=== PATIENT | female | born 1990 | race American Indian/Alaskan Native ===

== ENCOUNTER 2020-07-14 11:36 | Emergency (ER) | payer OTHER ==
[2020-07-14 11:56] VITALS: BP 121/78
[2020-07-14] MEDS ORDERED: HYDROcodone/ACETAMINOPHEN 5-325 MG TAB PO ONE (11:59)
[2020-07-14] MEDS ORDERED: LIDOCAINE-MPF (1%) 10 MG/1 ML VIAL 5 ML INFILTRATI ONE (11:59)
--- NOTE | 2020-07-14 12:04 | Emergency Department Report ---
- General Chief complaint: Skin/Abscess/Foreign Body Stated complaint: THIGH ABCESS Time Seen by Provider: 07/14/20 11:55 Source: patient Mode of arrival: Ambulatory Limitations: No Limitations - History of Present Illness Initial comments: pt is a 29 yo female who present to the ED with c/o right thigh abscess that began a few days ago. she states she has had this before in the past and they spontaneously resolve. she has not had to have an I&D in the past. she states that it has been increasing in size and becoming more painful. she denies any fever, n/v/d, drainage. she denies being bit by anything or any abrasion or laceration. no pmhx. no allergies to meds. - Related Data Previous Rx's Medication Instructions Recorded Last Taken Type Naproxen [EC-Naprosyn] 500 mg PO BID PRN #14 tablet. 07/14/20 Unknown Rx cephALEXin [Keflex] 500 mg PO QID 7 Days #28 cap 07/14/20 Unknown Rx Allergies Allergy/AdvReac Type Severity Reaction Status Date / Time No Known Allergies Allergy Verified 07/14/20 11:52 Abscess Boil HPI - HPI Chief Complaint: Skin/Abscess/Foreign Body Stated Complaint: THIGH ABCESS Time Seen by Provider: 07/14/20 11:55 Home Medications: Previous Rx's Medication Instructions Recorded Last Taken Type Naproxen [EC-Naprosyn] 500 mg PO BID PRN #14 tablet. 07/14/20 Unknown Rx cephALEXin [Keflex] 500 mg PO QID 7 Days #28 cap 07/14/20 Unknown Rx Allergies/Adverse Reactions: Allergies Allergy/AdvReac Type Severity Reaction Status Date / Time No Known Allergies Allergy Verified 07/14/20 11:52 ED Review of Systems ROS: Stated complaint: THIGH ABCESS Other details as noted in HPI Comment: All other systems reviewed and negative ED Past Medical Hx - Past Medical History Hx Psychiatric Treatment: Yes (SHIZO EFFECTIVE DISORDER/ DEPRESSION/ BIPOLAR) Hx Asthma: Yes - Surgical History Additional Surgical History: ORAL - Social History Smoking Status: Current Every Day Smoker Substance Use Type: None - Medications Home Medications: Home Medications Medication Instructions Recorded Confirmed Last Taken Type Naproxen [EC-Naprosyn] 500 mg PO BID PRN #14 tablet. 07/14/20 Unknown Rx cephALEXin [Keflex] 500 mg PO QID 7 Days #28 cap 07/14/20 Unknown Rx ED Physical Exam - General Limitations: No Limitations General appearance: alert, in no apparent distress - Head Head exam: Present: atraumatic, normocephalic - Eye Eye exam: Present: normal appearance - ENT ENT exam: Present: mucous membranes moist - Respiratory Respiratory exam: Absent: respiratory distress, accessory muscle use - Neurological Exam Neurological exam: Present: alert, oriented X3 - Psychiatric Psychiatric exam: Present: normal affect, normal mood - Skin Skin exam: Present: warm, dry, other (3 cm area of induration and central fluctuance to the right inner thigh, no drainage, no opening, no necrosis, no significant surrounding erythema ) ED Course Vital Signs 07/14/20 11:53 Temperature 97.8 F Pulse Rate 106 H Respiratory 20 Rate Blood Pressure 121/78 O2 Sat by Pulse 98 Oximetry - I & D Right Posterior Medial Thigh Type of Procedure: Simple Site: right posteriormedial thigh Blade Size: 11 I & D Procedure: betadine prep, sterile drapes applied, sterile dressing applied Progress: betadine prep, sterile drapes applied, 3 cc of 1% lidocaine without epinephrine used as anesthetic, 11 blade used to make 1 cm incision with moderate amount of purulent drainage, irrigated with saline, pt tolerated well, no complications, bleeding controlled, sterile dressing applied ED Medical Decision Making - Medical Decision Making pt is a 29 yo female who present to the ED with c/o right thigh abscess that began a few days ago. she states she has had this before in the past and they spontaneously resolve. she has not had to have an I&D in the past. she states that it has been increasing in size and becoming more painful. she denies any fever, n/v/d, drainage. she denies being bit by anything or any abrasion or laceration. no pmhx. no allergies to meds. vitals with mild tachycardia at 106, otherwise stable, likely secondary to discomfort from abscess. I&D performed per procedure note. Patient given prescription for Keflex and naproxen. Advised patient please take medication as prescribed. please keep area clean, dry, covered. wash with antibacterial soap and water and pat dry. no hot tub, no pool, no soaking in water. follow up with a primary care doctor and have area reexamined. return to the emergency room for any new or worsening symptoms. Critical care attestation.: If time is entered above; I have spent that time in minutes in the direct care of this critically ill patient, excluding procedure time. ED Disposition Clinical Impression: Abscess of right thigh Disposition: - TO HOME OR SELFCARE Is pt being admited?: No Does the pt Need Aspirin: No Condition: Stable Instructions: Skin Abscess, Incision and Drainage, Care After Additional Instructions: please take medication as prescribed. please keep area clean, dry, covered. wash with antibacterial soap and water and pat dry. no hot tub, no pool, no soaking in water. follow up with a primary care doctor and have area reexamined. return to the emergency room for any new or worsening symptoms. Prescriptions: Naproxen [EC-Naprosyn] 500 mg PO BID PRN #14 tablet.dr MESSINA Reason: pain cephALEXin [Keflex] 500 mg PO QID 7 Days #28 cap Referrals: [facility] [Other] - 2-3 Days Time of Disposition: 14:29 Print Language: MONGOLIAN
== END 2020-07-14 14:40 | disposition home or self-care (01) ==
LOC: ED 11:36
DX: L02.415 Cutaneous abscess of right lower limb (principal); J45.909 Unspecified asthma, uncomplicated; F17.200 Nicotine dependence, unspecified, uncomplicated; Z98.890 Other specified postprocedural states; Z79.899 Other long term (current) drug therapy
CPT/HCPCS: 99282